=== PATIENT | male | born 1955 | race Caucasian/White ===

== ENCOUNTER 2021-09-14 09:18 | Inpatient (IN) | payer MEDICARE, MEDICAID ==
[~2021-09-14] VITALS: Ht 167.6 cm; Wt 71.9 kg
[2021-09-14 09:46] LABS: HEMATOCRIT. 42.6 % (42.0-52.0); HEMOGLOBIN. 14.3 g/dL (14.0-18.0); MEAN CORPUSCULAR HEMOGLOBIN 28.9 pg (28.0-32.0); MEAN CORPUSCULAR VOLUME 85.9 fL (80.0-94.0); MEAN PLATELET VOLUME 8.1 fl (7.4-10.4); RED BLOOD CELL COUNT 4.96 mill/uL (4.7-6.1); RED CELL DISTRIBUTION WIDTH 14.3 % (11.6-14.6)
[2021-09-14 09:54] LABS: CHLORIDE 104 mEq/L (98-107)
[2021-09-14] MEDS ORDERED: SODIUM CHLORIDE 0.9% 1,000 ML IV NR (10:45)
[2021-09-14 11:12] LABS: CREATINE KINASE 1251 IU/L (39-308)
[2021-09-14] MEDS ORDERED: ONDANSETRON HCL 4MG/2ML INJ IV PRN (11:45)
[2021-09-14] MEDS ORDERED: ACETAMINOPHEN 325MG TABLET PO PRN (11:45)
[2021-09-14 12:05] LABS: PLATELET ESTIMATE NORMAL
[2021-09-14 12:09] LABS: PLATELET 272 x1000/uL (130-400)
[2021-09-14 18:00] VITALS: BP 149/83
[2021-09-14] MEDS ORDERED: METO-385 PO (19:10)
[2021-09-14] MEDS ORDERED: ATOR10TA69 MT (19:14)
[2021-09-14] MEDS ORDERED: ESCI-7 MT (19:14)
[2021-09-14] MEDS ORDERED: HAL5 MT (19:14)
[2021-09-14 20:00] VITALS: BP 151/90
[2021-09-14] MEDS: SODIUM CHLORIDE 0.9% 1,000 ML IV SCH (23:44)
[2021-09-15] VITALS (7 sets, daily range): BP systolic 120–161; BP diastolic 72–92
[2021-09-15] MEDS: SODIUM CHLORIDE 0.9% 1,000 ML IV SCH (06:50)
[2021-09-15] MEDS: ATORVASTATIN CALCIUM 20MG TABLET PO SCH (20:49)
[2021-09-15] MEDS: METOPROLOL SUCCINATE 50MG ER TABLET PO SCH (20:49)
[2021-09-16] VITALS: BP 148/84
[2021-09-16 04:00] VITALS: BP 149/96
[2021-09-16] MEDS: SODIUM CHLORIDE 0.9% 1,000 ML IV SCH ×2 (04:13→20:37)
[2021-09-16 07:31] LABS: VITAMIN B12 SERUM 459 pg/mL (211-911)
[2021-09-16 08:00] VITALS: BP 153/87
[2021-09-16 12:02] VITALS: BP 136/71
[2021-09-16] MEDS ORDERED: DOCUSATE SODIUM 250MG CAPSULE PO PRN (14:30)
[2021-09-16 16:00] VITALS: BP 149/85
[2021-09-16 20:00] VITALS: BP 157/91
[2021-09-16] MEDS ORDERED: LACTULOSE 20G/30ML UDC PO NR (20:00)
[2021-09-16] MEDS: ATORVASTATIN CALCIUM 20MG TABLET PO SCH (20:35)
[2021-09-16] MEDS: METOPROLOL SUCCINATE 50MG ER TABLET PO SCH (20:36)
[2021-09-17] VITALS: BP 161/90
[2021-09-17 04:00] VITALS: BP_SYST 145; BP_SYST 161; BP_DIAS 84; BP_DIAS 90
[2021-09-17 08:00] VITALS: BP 156/92
[2021-09-17 12:00] VITALS: BP 161/85
[2021-09-17] MEDS: DEXAMETHASONE 4MG/ML 1ML VIAL IV SCH ×3 (12:36→23:38)
[2021-09-17] MEDS: CLONIDINE 0.1MG TABLET PO PRN (12:37)
[2021-09-17 16:00] VITALS: BP 144/93
[2021-09-17 20:00] VITALS: BP 166/86
[2021-09-17] MEDS: ATORVASTATIN CALCIUM 20MG TABLET PO SCH (20:40)
[2021-09-17] MEDS: METOPROLOL SUCCINATE 50MG ER TABLET PO SCH (20:41)
[2021-09-18] VITALS: BP 140/80
[2021-09-18 04:00] VITALS: BP 167/83
[2021-09-18] MEDS: DEXAMETHASONE 4MG/ML 1ML VIAL IV SCH ×2 (05:16→11:08)
[2021-09-18] MEDS: CLONIDINE 0.1MG TABLET PO PRN (05:16)
[2021-09-18 08:00] VITALS: BP 150/93
[2021-09-18 12:00] VITALS: BP 143/85
[2021-09-18 16:00] VITALS: BP 149/82
[2021-09-18 17:48] LABS: PROTHROMBIN TIME 10.7 sec (9.6-11.0)
[2021-09-18] MEDS: ATORVASTATIN CALCIUM 20MG TABLET PO SCH (21:20)
[2021-09-18] MEDS: METOPROLOL SUCCINATE 50MG ER TABLET PO SCH (21:20)
[2021-09-19] VITALS (59 sets, daily range): BP systolic 100–169; BP diastolic 8–92
[2021-09-19] MEDS ORDERED: GENTAMICIN SULF 40MG/ML 2ML VIAL ONE (06:52)
[2021-09-19] MEDS ORDERED: THROMBIN (BOVINE) 5000 UNITS/VIAL TOP ONE ×2 (06:52→06:53)
[2021-09-19] MEDS ORDERED: LIDOCAINE HCL/EPINEPHRINE 1%-EPI 1:100,000 50 ML VIAL INFIL ONE (06:53)
[2021-09-19] MEDS ORDERED: CEFAZOLIN SODIUM 1000MG/VIAL ONE (08:17)
[2021-09-19] MEDS ORDERED: HYDROMORPHONE HCL/PF 2MG/ML (OR) ONE (08:18)
[2021-09-19] MEDS ORDERED: ALBUMIN HUMAN 25GM/100ML (25%) IV ONE (08:21)
[2021-09-19] MEDS ORDERED: GLYCOPYRROLATE 0.2 MG/ML 2ML VIAL ONE (08:25)
[2021-09-19] MEDS ORDERED: HYDRALAZINE 20MG/ML VIAL ONE ×2 (08:39→10:09)
[2021-09-19] MEDS ORDERED: CALCIUM CHLORIDE 1GM/10ML SYR IV ONE (09:05)
[2021-09-19] MEDS ORDERED: METOPROLOL TARTRATE 5MG/5ML VIAL IV NR (10:30)
[2021-09-19] MEDS: NICARDIPINE 100 MG in SODIUM CHLORIDE 0.9% 60 ML IV PRN ×2 (10:41→19:39)
[2021-09-19] MEDS: DEXT 5%/LACTATED RINGERS 1,000 ML IV SCH ×2 (10:43→19:39)
[2021-09-19] MEDS ORDERED: CEFAZOLIN 1000MG PREMIX 50 ML IV SCH (11:30)
[2021-09-19] MEDS ORDERED: CEFAZOLIN SODIUM 1000MG/VIAL IV SCH (14:00)
[2021-09-19] MEDS: MORPHINE SULFATE 4 MG/ML CPJ (NOT FOR IM USE) IV PRN ×3 (14:00→20:28)
[2021-09-19] MEDS: DEXAMETHASONE 4MG/ML 1ML VIAL IV SCH ×3 (14:00→23:00)
[2021-09-19 16:51] LABS: CLARITY URINE CLOUDY (CLEAR); COLOR URINE YELLOW (YELLOW); KETONES URINE TRACE (NEGATIVE); LEUKOCYTE ESTERASE URINE NEGATIVE (NEGATIVE); NITRITE URINE NEGATIVE (NEGATIVE); OCCULT BLOOD URINE NEGATIVE (NEGATIVE); PROTEIN URINE 2+ (NEGATIVE); SPECIFIC GRAVITY URINE 1.025 (1.005-1.030); UROBILINOGEN URINE 0.2 E.U./dL (0.2-1.0)
[2021-09-19 17:01] LABS: *BARBITURATES SCREEN URINE NEGATIVE (NEGATIVE); *BENZODIAZEPINES SCREEN URINE NEGATIVE (NEGATIVE); *COCAINE SCREEN URINE NEGATIVE (NEGATIVE)
[2021-09-19 17:02] LABS: *AMPHETAMINES SCREEN URINE NEGATIVE (NEGATIVE); CANNABINOID URINE SCREEN NEGATIVE (NEGATIVE); METHADONE URINE SCREEN NEGATIVE (NEGATIVE); OPIATES URINE SCREEN PRESUMTIVE POSITIVE (NEGATIVE); PHENCYCLIDINE URINE SCREEN NEGATIVE (NEGATIVE)
[2021-09-19] MEDS: CLONIDINE 0.1MG TABLET PO PRN (17:13)
[2021-09-19] MEDS: HYDRALAZINE HCL 100MG TABLET PO SCH (17:13)
[2021-09-19] MEDS ORDERED: MORPHINE SULFATE 2 MG/ML CPJ (NOT FOR IM USE) IV NR (17:45)
[2021-09-19] MEDS: METOPROLOL SUCCINATE 50MG ER TABLET PO SCH (20:27)
[2021-09-19] MEDS: ATORVASTATIN CALCIUM 20MG TABLET PO SCH (20:27)
[2021-09-19] MEDS: CEFAZOLIN 1000MG PREMIX 50 ML IV SCH (22:05)
[2021-09-20] VITALS (87 sets, daily range): BP systolic 101–144; BP diastolic 42–67
[2021-09-20] MEDS: NICARDIPINE 100 MG in SODIUM CHLORIDE 0.9% 60 ML IV PRN ×2 (02:06→10:23)
[2021-09-20] MEDS: DEXT 5%/LACTATED RINGERS 1,000 ML IV SCH ×2 (06:05→16:33)
[2021-09-20] MEDS: CEFAZOLIN 1000MG PREMIX 50 ML IV SCH (06:05)
[2021-09-20] MEDS: DEXAMETHASONE 4MG/ML 1ML VIAL IV SCH ×2 (06:05→12:23)
[2021-09-20] MEDS: HYDRALAZINE HCL 100MG TABLET PO SCH ×2 (09:14→16:33)
[2021-09-20 13:11] LABS: CHLORIDE 110 mEq/L (98-107)
[2021-09-20 13:45] LABS: HEMATOCRIT. 34.9 % (42.0-52.0); HEMOGLOBIN. 11.8 g/dL (14.0-18.0); MEAN CORPUSCULAR VOLUME 85.9 fL (80.0-94.0); MEAN PLATELET VOLUME 8.8 fl (7.4-10.4); PLATELET 240 x1000/uL (130-400); RED BLOOD CELL COUNT 4.06 mill/uL (4.7-6.1); RED CELL DISTRIBUTION WIDTH 14.5 % (11.6-14.6)
[2021-09-20 14:29] LABS: PLATELET ESTIMATE NORMAL
[2021-09-20] MEDS: CEFAZOLIN 1,000 MG in DEXTROSE 5% WATER 50 ML IV SCH ×2 (14:30→22:03)
[2021-09-20] MEDS: ATORVASTATIN CALCIUM 20MG TABLET PO SCH (20:53)
[2021-09-20] MEDS: METOPROLOL SUCCINATE 50MG ER TABLET PO SCH (20:54)
[2021-09-21] VITALS (20 sets, daily range): BP systolic 91–131; BP diastolic 58–76
[2021-09-21] MEDS: DEXT 5%/LACTATED RINGERS 1,000 ML IV SCH ×2 (03:11→14:24)
[2021-09-21] MEDS: CEFAZOLIN 1,000 MG in DEXTROSE 5% WATER 50 ML IV SCH (06:28)
[2021-09-21] MEDS: HYDRALAZINE HCL 100MG TABLET PO SCH ×2 (08:10→17:43)
[2021-09-21] MEDS: HYDROCODONE/ACETAMINOPHEN 5/325MG TABLET PO PRN ×3 (08:11→21:09)
[2021-09-21] MEDS: METOPROLOL SUCCINATE 50MG ER TABLET PO SCH (21:11)
[2021-09-21] MEDS: ATORVASTATIN CALCIUM 20MG TABLET PO SCH (21:11)
[2021-09-22] VITALS (7 sets, daily range): BP systolic 108–144; BP diastolic 64–85
[2021-09-22] MEDS: ZOLPIDEM TARTRATE 5MG TABLET PO PRN (00:07)
[2021-09-22] MEDS: HYDRALAZINE HCL 100MG TABLET PO SCH ×2 (08:39→17:54)
[2021-09-22] MEDS: HYDROCODONE/ACETAMINOPHEN 5/325MG TABLET PO PRN (13:28)
[2021-09-22] MEDS: DEXT 5%/LACTATED RINGERS 1,000 ML IV SCH (17:54)
[2021-09-22] MEDS: ATORVASTATIN CALCIUM 20MG TABLET PO SCH (20:50)
[2021-09-22] MEDS: METOPROLOL SUCCINATE 50MG ER TABLET PO SCH (20:50)
[2021-09-23] VITALS: BP 130/76
[2021-09-23 04:00] VITALS: BP 141/76
[2021-09-23 08:00] VITALS: BP 138/78
[2021-09-23] MEDS: HYDROCODONE/ACETAMINOPHEN 5/325MG TABLET PO PRN (08:42)
[2021-09-23] MEDS: HYDRALAZINE HCL 100MG TABLET PO SCH ×2 (08:42→16:27)
[2021-09-23 12:00] VITALS: BP 113/59
[2021-09-23 15:33] VITALS: BP 135/74
[2021-09-23] MEDS ORDERED: MORPHINE SULFATE 2 MG/ML CPJ (NOT FOR IM USE) IV PRN (17:59)
[2021-09-23 20:00] VITALS: BP 113/88
[2021-09-23] MEDS: ATORVASTATIN CALCIUM 20MG TABLET PO SCH (20:45)
[2021-09-23] MEDS: METOPROLOL SUCCINATE 50MG ER TABLET PO SCH (20:45)
[2021-09-23] MEDS: ZOLPIDEM TARTRATE 5MG TABLET PO PRN (23:01)
[2021-09-24] VITALS: BP 129/77
[2021-09-24 04:00] VITALS: BP 127/81
[2021-09-24 08:00] VITALS: BP 140/85
[2021-09-24] MEDS: HYDRALAZINE HCL 100MG TABLET PO SCH ×2 (08:03→17:54)
[2021-09-24 12:00] VITALS: BP 111/66
[2021-09-24] MEDS: HYDROCODONE/ACETAMINOPHEN 5/325MG TABLET PO PRN ×2 (12:05→17:54)
[2021-09-24 16:00] VITALS: BP 123/80
[2021-09-24 18:02] VITALS: BP 123/80
== END 2021-09-24 18:35 | DRG 471 ==
LOC: ER 09:18 → 8WST 11:26 → MICUNO 09-19 10:30 → 8WST 09-21 09:00
PROVIDERS: ADMIT Internal Medicine; ATTEND Internal Medicine
PROC: 4A10X4Z Monitoring of Central Nervous Electrical Activity, External Approach (ICD-10-PCS; 2021-09-18)
PROC: 0RG2071 Fusion of 2 or more Cervical Vertebral Joints with Autologous Tissue Substitute, Posterior Approach, Posterior Column, Open Approach (ICD-10-PCS; principal; 2021-09-19)
PROC: 01N10ZZ Release Cervical Nerve, Open Approach (ICD-10-PCS; 2021-09-19)
DX: M48.02 Spinal stenosis, cervical region (principal); G82.50 Quadriplegia, unspecified; M62.82 Rhabdomyolysis; M50.00 Cervical disc disorder with myelopathy, unspecified cervical region; I50.30 Unspecified diastolic (congestive) heart failure; M48.061 Spinal stenosis, lumbar region without neurogenic claudication; M51.27 Other intervertebral disc displacement, lumbosacral region; R29.6 Repeated falls; D72.829 Elevated white blood cell count, unspecified; E78.5 Hyperlipidemia, unspecified; I11.0 Hypertensive heart disease with heart failure; Z20.822 Contact with and (suspected) exposure to COVID-19; M54.12 Radiculopathy, cervical region; R74.01 Elevation of levels of liver transaminase levels; G20 Parkinson's disease; F29 Unspecified psychosis not due to a substance or known physiological condition
CPT/HCPCS: 36415; 71045; 72040; 72141; 72146; 72148; 76000; 80048; 80053; 80305; 81003; 82550; 82607; 83735; 83880; 84443; 84484; 85025; 86850; 86900; 87426; 88304; 88311; 93005; 93306; 95816; 97110; 97116; 97162; 97164; 97166; 97530; 97535; 99285; C1713; J0360; J0690; J1100; J1170; J1580; J2270; J3490; J7050; J7060; J7121; L0172; P9047

== ENCOUNTER 2021-09-24 18:45 | Inpatient (IN) | payer MEDICARE, MEDICAID ==
[~2021-09-24] VITALS: Ht 175.3 cm; Wt 72.6 kg
[~2021-09-24 18:45] MED LIST: ATOR10TA69 MT; ESCI-7 MT; HAL5 MT; METO-385 PO
[2021-09-24 19:00] VITALS: BP 148/85
[2021-09-24 20:33] VITALS: BP 148/85
[2021-09-24] MEDS ORDERED: ACETAMINOPHEN 325MG TABLET PO PRN (22:00)
[2021-09-24] MEDS ORDERED: ONDANSETRON HCL 4MG/2ML INJ IV PRN (22:00)
[2021-09-24] MEDS ORDERED: CLONIDINE 0.1MG TABLET PO PRN (22:00)
[2021-09-25] MEDS: HYDROCODONE/ACETAMINOPHEN 5/325MG TABLET PO PRN ×2 (05:59→14:45)
[2021-09-25 08:00] VITALS: BP 129/83
[2021-09-25] MEDS: HYDRALAZINE HCL 100MG TABLET PO SCH ×2 (09:29→17:13)
[2021-09-25] MEDS: METOPROLOL SUCCINATE 50MG ER TABLET PO SCH (09:30)
[2021-09-25] MEDS: LACTULOSE 20G/30ML UDC PO SCH ×2 (17:13→22:34)
[2021-09-25 20:00] VITALS: BP 130/75
[2021-09-25] MEDS ORDERED: IPRATROPIUM/ALBUTEROL 0.5-3(2.5)MG/3ML NEB HHN PRN (20:30)
[2021-09-25] MEDS: ZOLPIDEM TARTRATE 5MG TABLET PO PRN (22:31)
[2021-09-25] MEDS: ATORVASTATIN CALCIUM 20MG TABLET PO SCH (22:31)
[2021-09-26] MEDS: LACTULOSE 20G/30ML UDC PO SCH ×4 (06:20→17:30)
[2021-09-26 08:00] VITALS: BP 128/79
[2021-09-26] MEDS: METOPROLOL SUCCINATE 50MG ER TABLET PO SCH (08:31)
[2021-09-26] MEDS: HYDRALAZINE HCL 100MG TABLET PO SCH ×2 (08:31→17:27)
[2021-09-26 20:00] VITALS: BP 127/72
[2021-09-26] MEDS: ATORVASTATIN CALCIUM 20MG TABLET PO SCH (21:37)
[2021-09-26] MEDS: ZOLPIDEM TARTRATE 5MG TABLET PO PRN (21:47)
[2021-09-27] MEDS: LACTULOSE 20G/30ML UDC PO SCH ×2 (05:06)
[2021-09-27 08:00] VITALS: BP 128/76
[2021-09-27] MEDS: METOPROLOL SUCCINATE 50MG ER TABLET PO SCH (09:10)
[2021-09-27] MEDS: DOCUSATE SODIUM 250MG CAPSULE PO PRN (09:10)
[2021-09-27] MEDS: HYDROCODONE/ACETAMINOPHEN 5/325MG TABLET PO PRN ×2 (09:12→18:33)
[2021-09-27] MEDS: HYDRALAZINE HCL 100MG TABLET PO SCH ×2 (11:00→17:46)
[2021-09-27 20:00] VITALS: BP 110/63
[2021-09-27] MEDS: ATORVASTATIN CALCIUM 20MG TABLET PO SCH (22:11)
[2021-09-28 08:00] VITALS: BP 101/62
[2021-09-28] MEDS: METOPROLOL SUCCINATE 50MG ER TABLET PO SCH (08:56)
[2021-09-28] MEDS: HYDRALAZINE HCL 100MG TABLET PO SCH (08:57)
[2021-09-28] MEDS: HYDROCODONE/ACETAMINOPHEN 5/325MG TABLET PO PRN (10:48)
[2021-09-28] MEDS ORDERED: NALOXONE HCL 0.4MG/ML VIAL IV PRN (16:30)
[2021-09-28] MEDS ORDERED: HYDRALAZINE HCL 25MG TABLET PO SCH (17:00)
[2021-09-28 20:00] VITALS: BP 109/62
[2021-09-28] MEDS: ATORVASTATIN CALCIUM 20MG TABLET PO SCH (20:49)
[2021-09-28] MEDS: ZOLPIDEM TARTRATE 5MG TABLET PO PRN (20:52)
[2021-09-29 08:00] VITALS: BP 113/62
[2021-09-29] MEDS: METOPROLOL SUCCINATE 50MG ER TABLET PO SCH (09:42)
[2021-09-29] MEDS: DOCUSATE SODIUM 250MG CAPSULE PO PRN (09:42)
[2021-09-29] MEDS: HYDROCODONE/ACETAMINOPHEN 5/325MG TABLET PO PRN (09:43)
[2021-09-29] MEDS ORDERED: NA PHOS,M-B/NA PHOS,DI-BA ENEMA 118ML PR PRN (16:15)
[2021-09-29] MEDS: BISACODYL 5MG TABLET PO PRN (17:40)
[2021-09-29 20:00] VITALS: BP 123/66
[2021-09-29] MEDS: ATORVASTATIN CALCIUM 20MG TABLET PO SCH (22:09)
[2021-09-29] MEDS: ZOLPIDEM TARTRATE 5MG TABLET PO PRN (22:09)
[2021-09-30] MEDS: LACTULOSE 20G/30ML UDC PO PRN (04:41)
[2021-09-30 08:00] VITALS: BP 125/77
[2021-09-30] MEDS: METOPROLOL SUCCINATE 50MG ER TABLET PO SCH (10:00)
[2021-09-30 20:00] VITALS: BP 120/68
[2021-09-30] MEDS: ATORVASTATIN CALCIUM 20MG TABLET PO SCH (20:34)
[2021-09-30] MEDS: HYDROCODONE/ACETAMINOPHEN 5/325MG TABLET PO PRN (20:34)
[2021-10-01 08:00] VITALS: BP 105/64
[2021-10-01] MEDS: METOPROLOL SUCCINATE 50MG ER TABLET PO SCH (09:00)
[2021-10-01] MEDS: HYDROCODONE/ACETAMINOPHEN 5/325MG TABLET PO PRN ×2 (10:36→14:55)
[2021-10-01] MEDS: BISACODYL 5MG TABLET PO PRN (14:53)
[2021-10-01] MEDS: LACTULOSE 20G/30ML UDC PO PRN (16:48)
[2021-10-01 20:00] VITALS: BP 122/77
[2021-10-01] MEDS: ATORVASTATIN CALCIUM 20MG TABLET PO SCH (22:26)
[2021-10-02 08:00] VITALS: BP 125/76
[2021-10-02] MEDS: METOPROLOL SUCCINATE 50MG ER TABLET PO SCH (11:09)
[2021-10-02] MEDS: HYDROCODONE/ACETAMINOPHEN 5/325MG TABLET PO PRN (12:42)
[2021-10-02 20:00] VITALS: BP 114/64
[2021-10-02] MEDS: ATORVASTATIN CALCIUM 20MG TABLET PO SCH (21:44)
[2021-10-03 08:00] VITALS: BP 127/78
[2021-10-03] MEDS: METOPROLOL SUCCINATE 50MG ER TABLET PO SCH (10:19)
[2021-10-03] MEDS: HYDROCODONE/ACETAMINOPHEN 5/325MG TABLET PO PRN ×4 (10:20→22:24)
[2021-10-03 20:00] VITALS: BP 113/69
[2021-10-03] MEDS: ATORVASTATIN CALCIUM 20MG TABLET PO SCH (22:22)
[2021-10-04 08:00] VITALS: BP 124/74
[2021-10-04 09:31] VITALS: BP 124/74
[2021-10-04] MEDS: METOPROLOL SUCCINATE 50MG ER TABLET PO SCH (09:51)
== END 2021-10-04 12:25 | DRG 551 ==
PROVIDERS: ADMIT Psychiatry & Neurology Neurology; ATTEND Internal Medicine
DX: M48.02 Spinal stenosis, cervical region (principal); G82.50 Quadriplegia, unspecified; F33.1 Major depressive disorder, recurrent, moderate; G99.2 Myelopathy in diseases classified elsewhere; I50.32 Chronic diastolic (congestive) heart failure; M62.82 Rhabdomyolysis; D64.9 Anemia, unspecified; D72.829 Elevated white blood cell count, unspecified; E78.5 Hyperlipidemia, unspecified; G20 Parkinson's disease; I11.0 Hypertensive heart disease with heart failure; R62.7 Adult failure to thrive; R29.6 Repeated falls; R74.01 Elevation of levels of liver transaminase levels; R53.1 Weakness; W18.2XXA Fall in (into) shower or empty bathtub, initial encounter; Y92.89 Other specified places as the place of occurrence of the external cause; Y99.8 Other external cause status; Y93.E1 Activity, personal bathing and showering; Z68.23 Body mass index [BMI] 23.0-23.9, adult; Z86.59 Personal history of other mental and behavioral disorders
CPT/HCPCS: 87426; 92523; 92610; 93970; 97110; 97116; 97150; 97162; 97166; 97530; 97535; L0172

== ENCOUNTER 2022-09-21 09:47 | Emergency (ER) | payer MEDICARE, MEDICAID ==
[~2022-09-21] VITALS: Ht 175.3 cm; Wt 72.0 kg
[~2022-09-21 09:47] MED LIST changes: -HAL5 MT; +HALO5TAB2 MT
[2022-09-21 10:28] LABS: HEMATOCRIT 36.5 % (42.0-52.0); HEMOGLOBIN 12.4 g/dL (14.0-18.0); MEAN CORPUSCULAR HEMOGLOBIN 29.3 pg (28.0-32.0); MEAN CORPUSCULAR VOLUME 86.5 fL (80.0-94.0); PLATELET 246 x1000/uL (130-400); RED BLOOD CELL COUNT 4.22 mill/uL (4.7-6.1); RED CELL DISTRIBUTION WIDTH 14.3 % (11.6-14.6)
[2022-09-21 10:43] LABS: CHLORIDE 105 mEq/L (98-107)
[2022-09-21 11:15] VITALS: BP 147/76
[2022-09-21] MEDS ORDERED: SULF1TAB48 MT (11:25)
[2022-09-21] MEDS ORDERED: CEPH500C2 MT (11:25)
[2022-09-21] MEDS ORDERED: CEPHALEXIN 250MG CAPSULE PO ONE (11:30)
[2022-09-21] MEDS ORDERED: SULFAMETHOXAZOLE/TRIMETHOPRIM 400/80MG TAB PO ONE (11:30)
== END 2022-09-21 12:10 | disposition home or self-care (01) ==
LOC: ER 10:33
DX: L03.115 Cellulitis of right lower limb (principal); I10 Essential (primary) hypertension
CPT/HCPCS: 36415; 80053; 85027; 93971; 99284

== ENCOUNTER 2022-11-12 10:07 | Emergency (ER) | payer MEDICARE, MEDICAID ==
[~2022-11-12] VITALS: Ht 170.2 cm; Wt 73.0 kg
[~2022-11-12 10:07] MED LIST changes: +CEPH500C2 MT; +SULF1TAB48 MT
[2022-11-12 11:24] LABS: BASOPHILS % 0.9 % (0.0-2.0); HEMATOCRIT. 37.2 % (42.0-52.0); HEMOGLOBIN. 12.6 g/dL (14.0-18.0); LYMPHOCYTES % 24.4 % (20.0-50.0); MEAN CORPUSCULAR HEMOGLOBIN 29.7 pg (28.0-32.0); MEAN CORPUSCULAR VOLUME 87.4 fL (80.0-94.0); MEAN PLATELET VOLUME 8.5 fl (7.4-10.4); MONOCYTES % 8.8 % (2.0-8.0); NEUTROPHILS % 63.9 % (40.0-76.0); PLATELET 222 x1000/uL (130-400); RED BLOOD CELL COUNT 4.25 mill/uL (4.7-6.1); RED CELL DISTRIBUTION WIDTH 14.1 % (11.6-14.6)
[2022-11-12 11:32] LABS: CHLORIDE 107 mEq/L (98-107)
[2022-11-12 11:50] LABS: CLARITY URINE CLEAR (CLEAR); COLOR URINE YELLOW (YELLOW); KETONES URINE NEGATIVE (NEGATIVE); LEUKOCYTE ESTERASE URINE TRACE (NEGATIVE); NITRITE URINE NEGATIVE (NEGATIVE); OCCULT BLOOD URINE NEGATIVE (NEGATIVE); PROTEIN URINE NEGATIVE (NEGATIVE); SPECIFIC GRAVITY URINE 1.011 (1.005-1.030); UROBILINOGEN URINE 0.2 E.U./dL (0.2-1.0)
[2022-11-12 18:05] VITALS: BP 111/84
== END 2022-11-12 14:13 | disposition home or self-care (01) ==
LOC: ER 10:31
DX: M79.89 Other specified soft tissue disorders (principal); R21 Rash and other nonspecific skin eruption; I10 Essential (primary) hypertension
CPT/HCPCS: 36415; 80053; 81003; 84443; 85025; 93971; 99284

== ENCOUNTER 2023-10-17 09:51 | Emergency (ER) | payer MEDICARE, MEDICAID ==
[~2023-10-17] VITALS: Ht 180.3 cm; Wt 81.0 kg
[2023-10-17 09:57] VITALS: O2SAT 98
[2023-10-17] MEDS: ACETAMINOPHEN 325MG TABLET PO ONE (11:05)
[2023-10-17] MEDS ORDERED: GUAI120017 MT (11:28)
[2023-10-17 12:00] VITALS: BP 148/76; PULSE 84; RESP 17; TEMP 98.5
== END 2023-10-17 12:00 | disposition home or self-care (01) ==
LOC: ER 09:51
DX: B34.9 Viral infection, unspecified (principal); I10 Essential (primary) hypertension; Z79.899 Other long term (current) drug therapy
CPT/HCPCS: 71045; 87070; 87430; 99284